=== PATIENT | male | born 1995 | race Caucasian/White ===

== ENCOUNTER 2021-10-11 15:04 | Inpatient (IN) ==
[2021-10-11 16:19] LABS: Basophils # 0.1 K/mcL (0.0-0.2); Basophils % 0.7 %; Eosinophils % 0.6 %; Hematocrit 49.2 % (37.5-50.1); Hemoglobin 16.7 g/dL (12.9-16.9); Immature Granulocytes % 0.4 % (0-4); Lymphocytes # 2.3 K/mcL (0.6-4.6); Mean Corpuscular HGB Conc 33.9 g/dL (31.6-35.5); Mean Corpuscular Hemoglobin 29.5 pg (28.0-33.3); Mean Corpuscular Volume 86.9 fL (83.0-100.0); Mean Platelet Volume 10.6 fL (9.4-12.4); Monocytes # 0.5 K/mcL (0.0-1.3); Monocytes % 6.9 %; Platelet Count 283 K/mcL (140-400); Red Blood Count 5.66 M/mcL (4.19-5.50); Red Cell Distribution Width 12.6 % (11.5-14.5); Segmented Neutrophils % 58.4 %; White Blood Count 6.9 K/mcL (4.3-11.1)
[2021-10-11 16:26] LABS: Amphetamine Screen,Urine Negative ng/mL (Cutoff=1000); Barbiturate Screen,Urine Negative ng/mL (Cutoff=200); Benzodiazepines Screen,Urine Negative ng/mL (Cutoff=200); Cannabinoid Screen,Urine Negative ng/mL (Cutoff = 50); Cocaine Screen,Urine Negative ng/mL (Cutoff= 300); Opiate Screen,Urine Negative ng/mL (Cutoff=300); Phencyclidine Screen,Urine Negative ng/mL (Cutoff=25)
[2021-10-11 16:33] LABS: Bilirubin,Urine Negative (Negative); Blood,Urine Negative (Negative); Clarity,Urine Clear (Clear); Color,Urine Yellow (Yellow); Glucose,Urine (UA) Normal (Normal); Ketones,Urine Negative (Negative); Leukocyte Esterase,Urine Negative (Negative); Mucus,Urine Few per lpf (None-Few); Nitrite,Urine Negative (Negative); Protein,Urine 50 mg/dL (Neg-Trace); RBC,Urine 0-3 per hpf (0-3); Specific Gravity,Urine > 1.030 (1.010-1.025); Urobilinogen,Urine Normal (Normal); WBC,Urine 0-3 per hpf (0-3)
[2021-10-11 16:38] LABS: Acetaminophen < 10 mcg/mL (10-20); BUN/Creatinine Ratio 11 (6-26); Blood Urea Nitrogen 11 mg/dL (6-20); Calcium 9.7 mg/dL (8.6-10.3); Carbon Dioxide 29 mEq/L (23-29); Chloride 103 mEq/L (98-107); Chol/HDL Ratio 2.5 (0-4.9); Cholesterol 117 mg/dL (< 200); Ethanol < 10 mg/dL (Less than 10); Glucose 87 mg/dL (70-105); HDL Cholesterol 46 mg/dL (40-59); LDL Cholesterol,Calculated 60 mg/dL (< 100); Osmolality,Calculated 289 (280-300); Potassium 3.6 mEq/L (3.5-5.1); Salicylate < 2.5 mg/dL (15.0-30.0); Sodium 140 mEq/L (136-145); Triglycerides 57 mg/dL (< 150); eGFR For African Americans > 60 (> 60); eGFR For Non-African Americans > 60 (> 60)
[2021-10-11 16:56] LABS: Estimated Average Glucose 103 mg/dl; Hemoglobin A1C 5.2 %
[2021-10-11 21:43] LABS: Influenza A PCR Negative (Negative); Influenza B PCR Negative (Negative); Resp. Syncytial Virus PCR Negative (Negative)
[2021-10-11] MEDS ORDERED: Ibuprofen 600 MG TABLET PO ONE (22:09)
[2021-10-11 22:33] LABS: SARS-CoV-2 by PCR (In House) Positive (Negative)
[2021-10-12] MEDS ORDERED: *HR* LORazepam 1 MG TABLET PO PRN (16:27)
[2021-10-12] MEDS ORDERED: Acetaminophen 325 MG TABLET PO PRN (16:27)
[2021-10-12] MEDS ORDERED: haloperidoL 5 MG TABLET PO PRN (16:27)
[2021-10-12] MEDS ORDERED: Haloperidol Lactate 5 MG/ML VIAL IM PRN (16:27)
[2021-10-12] MEDS ORDERED: *HR* LORazepam 2 MG/ML VIAL IM PRN (16:27)
[2021-10-12] MEDS: hydrOXYzine pamoate 25 MG CAPSULE PO PRN (21:13)
[2021-10-12] MEDS: traZODone 50 MG TABLET PO PRN (21:13)
[2021-10-13] MEDS ORDERED: MOM Conc 10 ML UD.LIQ PO PRN (11:23)
[2021-10-13] MEDS ORDERED: Mag Hydrox/Al Hydrox/Simeth 30 ML UDC PO PRN (11:23)
[2021-10-13] MEDS: BuPROPion XL (24 HR) 150 MG TABLET PO SCH (14:20)
[2021-10-13 20:18] VITALS: PULSE 97
[2021-10-13] MEDS: hydrOXYzine pamoate 25 MG CAPSULE PO PRN (21:20)
[2021-10-13] MEDS: traZODone 50 MG TABLET PO PRN (21:20)
[2021-10-14] MEDS: BuPROPion XL (24 HR) 150 MG TABLET PO SCH (08:41)
[2021-10-14 09:00] VITALS: BP 122/77; TEMP 98.6; O2SAT 100
[2021-10-14] MEDS ORDERED: FLU Vac QV 21-22 (6Month+)/PF 0.5 ML SYRINGE IM ONE (11:50)
== END 2021-10-14 13:17 | disposition home or self-care (01) | DRG 885 ==
LOC: EDSEX → EMEROOARM 15:04 → 1ANU 10-12 16:16
PROVIDERS: ADMIT Psychiatry & Neurology Psychiatry; ATTEND Psychiatry & Neurology Psychiatry